=== PATIENT | male | born 1955 | race Caucasian/White ===

== ENCOUNTER 2016-12-01 14:22 | Emergency (ER) | payer OTHER, MEDICARE ==
[~2016-12-01] VITALS: Ht 180.3 cm; Wt 107.0 kg
[~2016-12-01 14:22] MED LIST: NORC7.5T PO; SULF-154 PO; Z.0.WALKERFRONT; [UNRECOGNIZED DRUG - CODE] PO
[2016-12-01 14:33] VITALS: BP 142/77; PULSE 89; RESP 18; TEMP 98.2; O2SAT 95
[2016-12-01] MEDS ORDERED: ONDANSETRON HCL 4 MG/2 ML VIAL IV PUSH ONE ×2 (14:45→15:00)
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
[2016-12-01] MEDS ORDERED: HYDROmorphone HCL PF 1 MG/ML VIAL IV PUSH ONE (15:00)
[2016-12-01 15:01] VITALS: BP 131/84; PULSE 84; RESP 20; TEMP 98.7; O2SAT 96
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
[2016-12-01 16:50] LABS: AUTOMATED NEUTROPHIL # 8.9 TH/MM3 (1.8-7.7); BASOPHIL % 0.4 % (0.0-2.0); EOSINOPHIL # 0.5 TH/MM3 (0-0.4); EOSINOPHIL % 3.5 % (0.0-4.0); HEMATOCRIT 44.5 % (39.0-51.0); HEMO FLAGS DIFF FINAL; LYMPH % 17.9 % (9.0-44.0); LYMPHOCYTE # 2.3 TH/MM3 (1.0-4.8); MEAN CELL VOLUME 89.1 FL (80.0-100.0); MEAN CORPUSCULAR HEMOGLOBIN 29.3 PG (27.0-34.0); MEAN CORPUSCULAR HGB CONC 32.9 % (32.0-36.0); MONO % 8.5 % (0.0-8.0); NEUT % 69.7 % (16.0-70.0); PLATELET COUNT 184 TH/MM3 (150-450); RED CELL DISTRIBUTION WIDTH 13.8 % (11.6-17.2); WHITE BLOOD COUNT 12.8 TH/MM3 (4.0-11.0)
[2016-12-01 17:08] LABS: ANION GAP 6 MEQ/L (5-15); AST (GOT) 15 U/L (15-37); BLOOD UREA NITROGEN 12 MG/DL (7-18); CHLORIDE 103 MEQ/L (98-107); GLOMERULAR FILTRATION RATE 59 ML/MIN (>89); POTASSIUM 3.8 MEQ/L (3.5-5.1); SODIUM (NA) 140 MEQ/L (136-145)
[2016-12-01 17:11] LABS: ALKALINE PHOSPHATASE 72 U/L (45-117); ALT (GPT) 13 U/L (12-78)
[2016-12-01] MEDS ORDERED: IOHEXOL 350 MG/ML 10 ML VIAL (for RAD DIAG) IV ONE (17:38)
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
[2016-12-01 18:55] VITALS: BP 160/82; PULSE 84; O2SAT 97
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
[2016-12-01] MEDS ORDERED: HYDR-3533 PO (19:51)
[2016-12-01] MEDS ORDERED: ROBA750T PO (19:58)
[2016-12-01] MEDS ORDERED: MORPHINE SULFATE 8 MG/ML INJ IV PUSH ONE (20:00)
== END 2016-12-01 22:01 | disposition home or self-care (01) ==
LOC: NEPC 14:22
DX: S16.1XXA Strain of muscle, fascia and tendon at neck level, initial encounter (principal); S50.319A Abrasion of unspecified elbow, initial encounter; T14.8 Other injury of unspecified body region; V03.10XA Pedestrian on foot injured in collision with car, pick-up truck or van in traffic accident, initial encounter; Y93.9 Activity, unspecified; Y92.9 Unspecified place or not applicable; Y99.9 Unspecified external cause status
CPT/HCPCS: 70450; 71010; 71260; 72125; 72128; 72131; 73030; 73080; 73502; 74177; 80053; 85025; 96374; 96375; 99285; J1170; J2270; J2405; Q9967